=== PATIENT | female | born 1965 | race Caucasian/White ===

== ENCOUNTER → 2017-04-08 | Outpatient (CLI) | payer OTHER ==
--- NOTE | 2017-04-08 11:56 | WOMENS IMAGING REPORT ---
EXAM DESCRIPTION: BILAT SCREENING MAMMO W/CAD COMPLETED DATE/TIME: 04/08/2017 9:30 am REASON FOR STUDY: ROUTINE SCREENING; Z12.31 Z12.31 ENCNTR SCREEN MAMMOGRAM FOR MALIGNANT NEOPLASM O F ALEXANDRE COMPARISON: Multiple since 2008 TECHNIQUE: Standard craniocaudal and mediolateral oblique views of each breast recorded using mDialoga l acquisition. LIMITATIONS: None. FINDINGS: RIGHT BREAST MASSES: No suspicious masses. CALCIFICATIONS: No new or suspicious calcifications. ARCHITECTURAL DISTORTION: None. DEVELOPING DENSITY: None. ASYMMETRY: None noted. OTHER: No other significant findings. LEFT BREAST MASSES: Subcentimeter nodule left breast, 6 7 cm from the nipple. This requires further evaluation w ith cone compression magnification views in the CC and MLO orientations, left breast 90 mediolateral view, and left breast ultrasound, CALCIFICATIONS: No new or suspicious calcifications. ARCHITECTURAL DISTORTION: None. DEVELOPING DENSITY: None. ASYMMETRY: None noted. OTHER: No other significant findings. Read with the assistance of CAD. .[facility] - R2 Cenova Version 1.3 .[facility] - R2 Cenova Version 1.3 .[facility] - R2 Cenova Version 2.4 .[facility] [place] Cenova Version 2.4 .[facility] - R2 Beauty Advisor Version 9.2 IMPRESSION: No mammographic evidence for malignancy right breast. Mammographic nodule left breast for which additional diagnostic magnification mammograms and left alexandre ast ultrasound recommended BREAST DENSITY: b. There are scattered areas of fibroglandular density. BIRAD: 0 Incomplete: Needs Additional Imaging Evaluation and/or prior Mammograms for Comparison. RECOMMENDATION: RECOMMENDED FOLLOW-UP: Additional left breast diagnostic magnification mammograms an d ultrasound The patient will be contacted for additional imaging. COMMENT: The patient has been notified of the results by letter per [place] requirements. Additional no tification policies are in place for contacting patient with suspicious or incomplete findings. Quality ID #[id number]: The [employer] recommends an annual screening mammogram for women aged 40 years or over. This facility utilizes a reminder system to ensure that all patients receive reminder letters, and/or direct phone calls for appointments. This includes reminders for routine scr eening mammograms, diagnostic mammograms, or other Breast Imaging Interventions when appropriate. Th is patient will be placed in the appropriate reminder system. The [employer] (ACR) has developed recommendations for screening MRI of the breast s in certain patient populations, to be used in conjunction with mammography. Breast MRI surveillanc e may be appropriate for women with more than 20% lifetime risk of developing breast cancer as deter mined by genetic testing, significant family history of the disease, or history of mantle radiation f or Hodgkins Disease. ACR Practice Guidelines 2008. TECHNICAL DOCUMENTATION: FINDING NUMBER: (1) ASSESSMENT: (1) JOB ID: [id number] [employer]- All Rights Reserved
== END ==
LOC: EDSTATUS 09:01 → WI 09:23
PROVIDERS: ATTEND Internal Medicine
DX: Z12.31 Encounter for screening mammogram for malignant neoplasm of breast (principal)
CPT/HCPCS: 77067; G0202

== ENCOUNTER → 2017-05-10 | Outpatient (CLI) | payer OTHER ==
--- NOTE | 2017-05-10 12:20 | WOMENS IMAGING REPORT ---
EXAM DESCRIPTION: LEFT DIAGNOSTIC MAMMO W/CAD; U/S BREAST UNILAT LIMITED COMPLETED DATE/TIME: 05/10/2017 8:42 am; 05/10/2017 9:06 am REASON FOR STUDY: N63, BREAST LUMP; LEFT BREAST NODULAR DENSITY N63 UNSPECIFIED LUMP IN BREAST COMPARISON: 04/08/2017 and 01/16/2015. TECHNIQUE: Additional images include a true lateral view and spot compression MLO and CC views. LIMITATIONS: None. FINDINGS: BREAST: left MASSES: Nodule in the lateral breast fairly well-circumscribed on additional images although portions are obscured by adjacent parenchyma. No suspicious masses. CALCIFICATIONS: No new or suspicious calcifications. ARCHITECTURAL DISTORTION: None. DEVELOPING DENSITY: None. ASYMMETRY: None noted. OTHER: No other significant findings. BREAST ULTRASOUND: TECHNIQUE: Static and dynamic grayscale images acquired of the left breast in the specific areas of c linical/mammographic concern. Selected color Doppler images recorded. ELASTOGRAPHY PERFORMED: No. LIMITATIONS: None. FINDINGS: MASS: In the upper-outer breast there is a 7 mm anechoic cyst. This has smooth borders with no inter nal echoes. There is mild distal acoustic enhancement. No solid mass identified. Normal glandular tissue. ELASTOGRAPHY CHARACTERISTICS: Not applicable. OTHER: No other significant finding. IMPRESSION: Breast nodule which has sonographic characteristics of a simple cyst. No worrisome mamm ographic or sonographic findings. BREAST DENSITY: b. There are scattered areas of fibroglandular density. BIRAD: 2 Benign findings. RECOMMENDATION: RECOMMENDED FOLLOW UP: Birads 1 or 2: The patient should resume routine screening . SPECIFIC INTERVENTION/IMAGING/CONSULTATION RECOMMENDED:No additional intervention/ imaging/consultati on needed at this time. COMMUNICATION:The imaging findings were not discussed with the patient. Her referring provider has be en notified of the findings. COMMENT: The patient has been notified of the results by letter per MQSA requirements. Additional no tification policies are in place for contacting patient with suspicious or incomplete findings. Quality ID #[id number]: The [employer] recommends an annual screening mammogram for women aged 40 years or over. This facility utilizes a reminder system to ensure that all patients receive reminder letters, and/or direct phone calls for appointments. This includes reminders for routine scr eening mammograms, diagnostic mammograms, or other Breast Imaging Interventions when appropriate. Th is patient will be placed in the appropriate reminder system. The [employer] (ACR) has developed recommendations for screening MRI of the breast s in certain patient populations, to be used in conjunction with mammography. Breast MRI surveillanc e may be appropriate for women with more than 20% lifetime risk of developing breast cancer as deter mined by genetic testing, significant family history of the disease, or history of mantle radiation f or Hodgkins Disease. ACR Practice Guidelines 2008. TECHNICAL DOCUMENTATION: FINDING NUMBER: (1) ASSESSMENT: (1) JOB ID: [id number] [employer]- All Rights Reserved
== END ==
LOC: WI 08:15
PROVIDERS: ATTEND Internal Medicine
DX: N63 Unspecified lump in breast (principal)
CPT/HCPCS: 76642; G0206

== ENCOUNTER 2017-07-30 19:58 | Emergency (ER) | payer OTHER ==
[2017-07-30] MEDS ORDERED: KETOROLAC TROMETHAMINE INJ/PF 30 MG/1 ML SDV IV ONE (20:26)
--- NOTE | 2017-07-30 20:28 | ER Document Report ---
ED General - General Chief Complaint: Seizure Stated Complaint: POSSIBLE SEIZURE Time Seen by Provider: 07/30/17 20:20 Notes: Patient is a 52-year-old female with a past medical history of seizures who presents after having a generalized tonic-clonic seizure just prior to arrival. Patient states that she felt that she was about to have a seizure, contacted 911, and when EMS arrived her house she was found postictal. Patient does take levetiracetam for seizure control and states that she has not had a seizure in approximately 1 year. She arrives complaining of generalized body aching which is a dull, cramping, discomfort in her entire body. Moving worsens the pain. Nothing improves the pain. States this is typical for how she feels after having seizures. She denies any focal weakness or numbness. No headache or altered mental status. Denies any medication noncompliance. TRAVEL OUTSIDE OF THE [place] IN LAST 30 DAYS: No - Related Data Allergies/Adverse Reactions: codeine [Codeine] Allergy (Severe, Verified 03/22/16 11:06) Penicillins Allergy (Unknown, Verified 03/22/16 11:06) oxycodone HCl [From Percocet] Allergy (Verified 03/22/16 11:06) aspirin [From Aspirin Regimen Jon/Calcium] Adverse Reaction (Mild, Verified 11:06) NSAIDS (Non-Steroidal Anti-Inflamma [Nsaids] Adverse Reaction (Mild, Verified 11:06) Past Medical History - General Information source: Patient - Social History Smoking Status: Never Smoker Frequency of alcohol use: None Drug Abuse: None Lives with: Spouse/Significant other Family History: Reviewed & Not Pertinent - Past Medical History Cardiac Medical History: Reports: Hx Hypertension Pulmonary Medical History: Reports: Hx Asthma Neurological Medical History: Reports: Hx Migraine, Hx Seizures Endocrine Medical History: Reports: Hx Diabetes Mellitus Type 2 - insulin resistant; resolved since gastric bypass surgery, Hx Hypothyroidism GI Medical History: Reports: Hx Gastroesophageal Reflux Disease, Hx Hiatal Hernia, Hx Ulcer Musculoskeltal Medical History: Reports Hx Musculoskeletal Deformity, Reports Hx Musculoskeletal Trauma Psychiatric Medical History: Reports: Hx Depression Traumatic Medical History: Reports: Hx Fractures Past Surgical History: Reports: Hx Abdominal Surgery - gastric bypass, Hx Appendectomy, Hx Cholecystectomy, Hx Gastric Bypass Surgery, Hx Gynecologic Surgery - ravindra salpingooophorectomy, Hx Hysterectomy, Hx Orthopedic Surgery - Immunizations Immunizations up to date: Yes Hx Diphtheria, Pertussis, Tetanus Vaccination: Yes Review of Systems - Review of Systems Notes: Constitutional: Negative for fever. HENT: Negative for sore throat. Eyes: Negative for visual changes. Cardiovascular: Negative for chest pain. Respiratory: Negative for shortness of breath. Gastrointestinal: Negative for abdominal pain, vomiting or diarrhea. Genitourinary: Negative for dysuria. Musculoskeletal: Negative for back pain. Skin: Negative for rash. Neurological: Negative for headaches, weakness or numbness. 10 point ROS negative except as marked above and in HPI. Physical Exam - Vital signs Vitals: Resp BP Pulse Ox 24 H 124/89 H 100 07/30/17 20:07 07/30/17 20:07 07/30/17 20:07 Interpretation: Normal Notes: PHYSICAL EXAMINATION: GENERAL: Appears mildly uncomfortable but in no acute distress HEAD: Atraumatic, normocephalic. EYES: Pupils equal round and reactive to light, extraocular movements intact, sclera anicteric, conjunctiva are normal. ENT: nares patent, oropharynx clear without exudates. Moist mucous membranes. NECK: Normal range of motion, supple without lymphadenopathy LUNGS: Breath sounds clear to auscultation bilaterally and equal. No wheezes rales or rhonchi. HEART: Regular rate and rhythm without murmurs ABDOMEN: Soft, nontender, normoactive bowel sounds. No guarding, no rebound. No masses appreciated. EXTREMITIES: Normal range of motion, no pitting or edema. No cyanosis. NEUROLOGICAL: Face symmetric. Tongue protrudes midline. Extraocular motions intact. Pupils are 2 mm and equally reactive. Normal speech, normal gait. 5 out of 5 strength in both the distal and proximal upper and lower extremities bilaterally. Sensation is grossly intact throughout. Finger to nose testing normal. Pronator drift normal. PSYCH: Normal mood, normal affect. SKIN: Warm, Dry, normal turgor, no rashes or lesions noted. Course - Re-evaluation Re-evalutation: 07/30/17 20:27 Presentation of well-appearing patient after having a seizure. Patient has a known history of seizures. No obvious trigger for today's episode. The patient has returned to baseline without intervention. No focal neurologic deficits. No infectious symptoms, vital sign abnormalities, or evidence of trauma. No indication for laboratories or imaging based on reassuring evaluation and known history of seizures. The patient will be discharged home with recommendations for close follow-up with primary care as well as their neurologist. Return precautions have been reviewed and patient has verbalized understanding. - Vital Signs Vital signs: Temp Pulse Resp BP Pulse Ox 98.8 F 76 16 109/72 100 07/30/17 22:51 07/30/17 22:51 07/30/17 22:51 07/30/17 22:51 07/30/17 22:51 Discharge - Discharge Clinical Impression: Seizure Condition: Good Disposition: HOME, SELF-CARE Additional Instructions: Today you had a seizure. It is very important that you do not engage in any activities that could result in severe injury should you have a seizure. Specifically, do not drive a vehicle, go into a body of water, take a bath, climb ladders, or operate any heavy machinery until you have been cleared by your neurologist. Please return to the ED immediately if you have multiple seizures close together, develop a severe headache, weakness, numbness, difficulty speaking, have a seizure in which you do not return to normal within 1 hour of the seizure, or have any other symptoms that are concerning to you. Forms: Return to Work Referrals: REKHA LIN MD [Primary Care Provider] - Follow up as needed
[2017-07-30 22:53] VITALS: BP 109/72
--- NOTE | 2017-07-31 07:43 | EKG REPORT ---
SEVERITY:- OTHERWISE NORMAL ECG - SINUS TACHYCARDIA : Confirmed by: Lior Davis MD 31-Jul-2017 07:43:20
== END 2017-07-30 22:51 | disposition home or self-care (01) ==
LOC: ER 19:58
DX: R56.9 Unspecified convulsions (principal); I10 Essential (primary) hypertension; E11.9 Type 2 diabetes mellitus without complications; Z79.4 Long term (current) use of insulin; Z88.6 Allergy status to analgesic agent; Z88.0 Allergy status to penicillin; Z98.84 Bariatric surgery status; Z90.49 Acquired absence of other specified parts of digestive tract
CPT/HCPCS: 93005; 99284; 96374; 93010; J1885

== ENCOUNTER 2017-07-31 10:35 | Emergency (ER) | payer OTHER ==
[2017-07-31] MEDS ORDERED: DIPHENHYDRAMINE HCL 50 MG/ML VIAL IM ONE (11:00)
[2017-07-31] MEDS ORDERED: SILVER SULFADIAZINE 1% CREAM 25 GM TP ONE (11:00)
[2017-07-31] MEDS ORDERED: MORPHINE SULFATE 10 MG/ML INJ IM ONE (11:00)
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
--- NOTE | 2017-07-31 11:38 | RADIOLOGY REPORT (SQ) ---
EXAM DESCRIPTION: CT CERVICAL SPINE WITHOUT COMPLETED DATE/TIME: 07/31/2017 11:25 am REASON FOR STUDY: seizure, fall, neck pain COMPARISON: Prior CT cervical spine exams 08/13/2010, 07/16/2015, 09/18/2016 TECHNIQUE: Axial images acquired through the cervical spine without intravenous contrast. Images re viewed with lung, soft tissue and bone windows. Reconstructed coronal and sagittal MPR images review ed. Images stored on PACS. All CT scanners at this facility use dose modulation, iterative reconstruction, and/or weight based d osing when appropriate to reduce radiation dose to as low as reasonably achievable (ALARA). [facility]: Dose Right [facility]: CareDose [facility]: Dose Right [facility]: Teradose 4D [facility]: [employer] Technologies RADIATION DOSE: Up-to-date CT equipment and radiation dose reduction techniques were employed. CTDIv ol: 17.9 mGy. DLP: 386 mGy-cm. mGy. LIMITATIONS: None. FINDINGS: ALIGNMENT: Anatomic. MINERALIZATION: Normal. VERTEBRAL BODIES: No fractures or dislocation. DISCS: No significant disc disease. Very mild bilateral foraminal narrowing at C5-6 from facet and u ncovertebral hypertrophy. FACETS, LATERAL MASSES, POSTERIOR ELEMENTS: No fractures. No dislocation. No acute findings. HARDWARE: None in the spine. VISUALIZED RIBS: No fractures. LUNG APICES AND SOFT TISSUES: No significant or acute findings. OTHER: No other significant finding. IMPRESSION: NO ACUTE OR SIGNIFICANT FINDINGS IN THE CERVICAL SPINE. TECHNICAL DOCUMENTATION: JOB ID: [id number] Quality ID # [id number]: Final reports with documentation of one or more dose reduction techniques (e.g., Au tomated exposure control, adjustment of the mA and/or kV according to patient size, use of iterative reconstruction technique) 2010 [place] [employer] [facility]- All Rights Reserved
[2017-07-31 13:03] VITALS: BP 123/86
== END 2017-07-31 13:03 | disposition home or self-care (01) ==
LOC: ER 10:35
DX: R56.9 Unspecified convulsions (principal); Z79.899 Other long term (current) drug therapy; T22.142A Burn of first degree of left axilla, initial encounter; X10.1XXA Contact with hot food, initial encounter; Y93.G3 Activity, cooking and baking; S16.1XXA Strain of muscle, fascia and tendon at neck level, initial encounter; X58.XXXA Exposure to other specified factors, initial encounter; E11.9 Type 2 diabetes mellitus without complications; I10 Essential (primary) hypertension; Z88.5 Allergy status to narcotic agent; Z88.0 Allergy status to penicillin; Z98.84 Bariatric surgery status
CPT/HCPCS: 99284; 96372; 72125; J1200; J2270

== ENCOUNTER 2018-04-29 07:41 | Emergency (ER) | payer OTHER ==
[2018-04-29 07:59] VITALS: BP 137/78
[2018-04-29] MEDS ORDERED: KETOROLAC TROMETHAMINE 60 MG/2 ML SDV IM ONE (08:30)
[2018-04-29] MEDS ORDERED: PHENAZOPYRIDINE HCL 200 MG TABLET PO ONE (08:30)
--- NOTE | 2018-04-29 08:31 | ER Document Report ---
ED GI/ - General Mode of Arrival: Ambulatory Information source: Patient TRAVEL OUTSIDE OF THE [place] IN LAST 30 DAYS: No <JAQUAN FLORES - Last Filed: 04/29/18 14:51> <ANGELICA LOZANO - Last Filed: 04/29/18 16:08> - General Chief Complaint: Urinary Frequency Stated Complaint: FREQUENT URINATION WITH PAIN Time Seen by Provider: 04/29/18 08:10 Notes: 53-year-old female presenting to the emergency department today with complaints of right-sided CVA pain and possible dehydration/UTI. Patient states last night her symptoms began at about 2300 with a headache which has happened to her in the past when she is dehydrated. Patient states she has had some dysuria and a decreased appetite. Patient denies any nausea, vomiting, sweats, or chills. (JAQUAN FLORES) - Related Data Allergies/Adverse Reactions: codeine [Codeine] Allergy (Severe, Verified 04/29/18 07:42) Penicillins Allergy (Unknown, Verified 04/29/18 07:42) oxycodone HCl [From Percocet] Allergy (Verified 04/29/18 07:42) aspirin [From Aspirin Regimen Jon/Calcium] Adverse Reaction (Mild, Verified 07:42) NSAIDS (Non-Steroidal Anti-Inflamma [Nsaids] Adverse Reaction (Mild, Verified 07:42) Past Medical History - General Information source: Patient - Social History Smoking Status: Unknown if Ever Smoked Cigarette use (# per day): No Frequency of alcohol use: None Drug Abuse: None Lives with: Family Family History: Reviewed & Not Pertinent Patient has suicidal ideation: No Patient has homicidal ideation: No - Past Medical History Cardiac Medical History: Reports: Hx Hypertension Pulmonary Medical History: Reports: Hx Asthma Neurological Medical History: Reports: Hx Migraine, Hx Seizures Endocrine Medical History: Reports: Hx Diabetes Mellitus Type 2 - insulin resistant; resolved since gastric bypass surgery, Hx Hypothyroidism GI Medical History: Reports: Hx Gastroesophageal Reflux Disease, Hx Hiatal Hernia, Hx Ulcer Musculoskeletal Medical History: Reports Hx Musculoskeletal Deformity, Reports Hx Musculoskeletal Trauma Psychiatric Medical History: Reports: Hx Depression Traumatic Medical History: Reports: Hx Fractures Past Surgical History: Reports: Hx Abdominal Surgery - gastric bypass, Hx Appendectomy, Hx Cholecystectomy, Hx Gastric Bypass Surgery, Hx Gynecologic Surgery - ravindra salpingooophorectomy, Hx Hysterectomy, Hx Orthopedic Surgery - Immunizations Immunizations up to date: Yes Hx Diphtheria, Pertussis, Tetanus Vaccination: Yes <JAQUAN FLORES - Last Filed: 04/29/18 14:51> Review of Systems - Review of Systems Constitutional: See HPI, Other - decreased appetite. denies: Chills, Diaphoresis EENT: No symptoms reported Cardiovascular: No symptoms reported Respiratory: No symptoms reported Gastrointestinal: See HPI, Abdominal pain. denies: Nausea, Vomiting Genitourinary: See HPI, Dysuria Female Genitourinary: No symptoms reported Musculoskeletal: No symptoms reported Skin: No symptoms reported Hematologic/Lymphatic: No symptoms reported Neurological/Psychological: No symptoms reported -: Yes All other systems reviewed and negative <JAQUAN FLORES - Last Filed: 04/29/18 14:51> Physical Exam <JAQUAN FLORES - Last Filed: 04/29/18 14:51> <ANGELICA LOZANO - Last Filed: 04/29/18 16:08> - Vital signs Vitals: Temp Pulse Resp BP Pulse Ox 98.0 F 71 15 137/78 H 97 04/29/18 07:52 04/29/18 07:52 04/29/18 07:52 04/29/18 07:52 04/29/18 07:52 - Notes Notes: PHYSICAL EXAM GENERAL: Alert, interacts well. No acute distress. HEAD: Normocephalic, atraumatic. EYES: Pupils equal, round, and reactive to light. Extraocular movements intact. ENT: Oral mucosa moist, tongue midline. NECK: Full range of motion. Supple. Trachea midline. LUNGS: Clear to auscultation bilaterally, no wheezes, rales, or rhonchi. No respiratory distress. HEART: Regular rate and rhythm. No murmurs, gallops, or rubs. ABDOMEN: RLQ, LLQ, and RUQ tenderness with palpation with the RUQ and LLQ being the worst. Non-distended. Bowel sounds present in all 4 quadrants. No guarding, rigidity, or rebound. BACK: Slight left CVA ttp. EXTREMITIES: Moves all 4 extremities spontaneously. No edema, radial and dorsalis pedis pulses 2/4 bilaterally. No cyanosis. NEUROLOGICAL: Alert and oriented x3. Normal speech. PSYCH: Normal affect, normal mood. SKIN: Warm, dry, normal turgor. No rashes or lesions noted. (JAQUAN FLORES) Course - Laboratory Result Diagrams: 04/29/18 09:44 04/29/18 09:44 <JAQUAN FLORES - Last Filed: 04/29/18 14:51> - Laboratory Result Diagrams: 04/29/18 09:44 04/29/18 09:44 <ANGELICA LOZANO - Last Filed: 04/29/18 16:08> - Re-evaluation Re-evalutation: 04/29/18 09:40 Urinalysis shows small blood on the dipstick but 0 RBCs, no leukocyte esterase, no nitrites, 0 WBCs. Patient is in a moderate amount of pain on physical examination. I am concerned that in this patient with gastric bypass surgery that we may be missing an acute intra-abdominal process. I did order CBC and chemistries as well as urine culture, I ordered a CT scan with IV and oral contrast. Patient states she cannot stay for this as she has to work tonight. We discussed the risks and benefits of leaving without a CAT scan. We compromised on performing a CBC and chemistries and I will call her with the results. She agrees to return should her white blood cell count to be markedly elevated. Patient is aware that this will potentially delay care of a surgical intra-abdominal process such as diverticulitis with abscess. Patient is still choosing to leave after blood work has been performed. Patient has given me permission to text the results to her cell phone which was confirmed with her prior to leaving. 04/29/18 16:07 Results were texted to her via screenshots to her cell phone number as requested by her at 12:02 PM. (ANGELICA LOZANO) - Vital Signs Vital signs: Temp Pulse Resp BP Pulse Ox 98.0 F 71 15 137/78 H 97 04/29/18 07:52 04/29/18 07:52 04/29/18 07:52 04/29/18 07:52 04/29/18 07:52 - Laboratory Laboratory results interpreted by me: 04/29/18 04/29/18 07:50 09:44 Hgb 10.8 L Hct 33.2 L MCV 75 L MCH 24.5 L RDW 14.9 H Urine Blood SMALL H Discharge <JAQUAN FLORES - Last Filed: 04/29/18 14:51> <ANGELICA LOZANO - Last Filed: 04/29/18 16:08> - Discharge Clinical Impression: Dysuria, Frequency of urination, Diffuse abdominal pain Condition: Stable Disposition: HOME, SELF-CARE Additional Instructions: Today your urine showed a small amount of blood on the dipstick but nothing on the microscopic examination. I do not know what exactly is causing your abdominal pain or your urinary frequency. We have agreed that we will hold off in the CAT scan for now but I will perform blood work including a CBC and chemistries. I will text these results to you per your request. I will also call the results to your Herve Coello if there is anything grossly abnormal that would require you to return immediately. Should your pain worsen, you develop fevers or you develop any new or concerning symptoms please return to the emergency department immediately. Forms: Return to Work Referrals: REKHA LIN MD [Primary Care Provider] - Follow up as needed Scribe Attestation: 04/29/18 16:08 I personally performed the services described in the documentation, reviewed and edited the documentation which was dictated to the scribe in my presence, and it accurately records my words and actions. (ANGELICA LOZANO) Scribe Documentation - Scribe Written by Antonio:: Antonio Martin, 04/29/2018 1458 acting as scribe for :: Ubaldo <JAQUAN FLORES - Last Filed: 04/29/18 14:51>
[2018-04-29 09:04] LABS: APPEARANCE,URINE CLEAR; BILIRUBIN,URINE NEGATIVE (NEGATIVE); COLOR,URINE COLORLESS; GLUCOSE, URINE NEGATIVE (NEGATIVE); KETONES,URINE NEGATIVE (NEGATIVE); LEUKOCYTE ESTERASE,URINE NEGATIVE (NEGATIVE); NITRITE,URINE NEGATIVE (NEGATIVE); PROTEIN,URINE NEGATIVE (NEGATIVE); URINE SPECIFIC GRAVITY 1.005; UROBILINOGEN,URINE NEGATIVE mg/dL (<2.0)
[2018-04-29 10:00] LABS: ABSOLUTE EOSINOPHILS # (AUTO) 0.1 10^3/uL (0.0-0.6); ABSOLUTE LYMPHOCYTES (AUTO) 1.7 10^3/uL (0.5-4.7); ABSOLUTE MONOCYTES (AUTO) 0.3 10^3/uL (0.1-1.4); BASOPHILS % (AUTO) 0.6 % (0-2); EOSINOPHILS % (AUTO) 1.8 % (0-6); HEMATOCRIT 33.2 % (36.0-47.0); HEMOGLOBIN 10.8 g/dL (12.0-15.5); LYMPHOCYTES % (AUTO) 40.6 % (13-45); MEAN CORPUSCULAR HEMOGLOBIN 24.5 pg (27.0-33.4); MEAN CORPUSCULAR HGB CONC 32.6 g/dL (32.0-36.0); MEAN CORPUSCULAR VOLUME 75 fl (80-97); PLATELET COUNT 272 10^3/uL (150-450); RED BLOOD COUNT 4.43 10^6/uL (3.72-5.28); RED CELL DISTRIBUTION WIDTH 14.9 % (11.5-14.0); TOTAL CELLS COUNTED % (AUTO) 100 %; WHITE BLOOD COUNT 4.2 10^3/uL (4.0-10.5)
[2018-04-29 10:20] LABS: ALANINE AMINOTRANSFERASE 28 U/L (9-52); ALBUMIN 4.3 g/dL (3.5-5.0); ALKALINE PHOSPHATASE 55 U/L (38-126); ANION GAP 11 (5-19); ASPARTATE AMINO TRANSFERASE 23 U/L (14-36); BILIRUBIN,TOTAL 0.4 mg/dL (0.2-1.3); BLOOD UREA NITROGEN 10 mg/dL (7-20); CALCIUM 9.6 mg/dL (8.4-10.2); CARBON DIOXIDE 27 mmol/L (22-30); CHLORIDE 103 mmol/L (98-107); GLUCOSE 106 mg/dL (75-110); POTASSIUM 4.5 mmol/L (3.6-5.0); SODIUM 141.4 mmol/L (137-145)
== END 2018-04-29 09:52 | disposition home or self-care (01) ==
LOC: ER 07:41
DX: R35.0 Frequency of micturition (principal); R30.0 Dysuria; R10.9 Unspecified abdominal pain; Z88.6 Allergy status to analgesic agent; Z88.0 Allergy status to penicillin; Z88.8 Allergy status to other drugs, medicaments and biological substances; I10 Essential (primary) hypertension; J45.909 Unspecified asthma, uncomplicated; G43.909 Migraine, unspecified, not intractable, without status migrainosus; G40.909 Epilepsy, unspecified, not intractable, without status epilepticus; E11.9 Type 2 diabetes mellitus without complications; Z98.84 Bariatric surgery status; E03.9 Hypothyroidism, unspecified; K21.9 Gastro-esophageal reflux disease without esophagitis; K44.9 Diaphragmatic hernia without obstruction or gangrene; F32.9 Major depressive disorder, single episode, unspecified; Z90.49 Acquired absence of other specified parts of digestive tract; Z90.710 Acquired absence of both cervix and uterus
CPT/HCPCS: 36415; 85025; 80053; 81001; J1885; J3490; 96372; 99283

== ENCOUNTER 2019-03-13 07:56 | Emergency (ER) | payer OTHER ==
[2019-03-13 08:08] VITALS: BP 122/85
--- NOTE | 2019-03-13 08:57 | RADIOLOGY REPORT (SQ) ---
EXAM DESCRIPTION: FOOT LEFT COMPLETE COMPLETED DATE/TIME: 03/13/2019 8:43 am REASON FOR STUDY: foot/ankle injury COMPARISON: 07/18/2015. NUMBER OF VIEWS: Three views. TECHNIQUE: AP, lateral and oblique radiographic images acquired of the left foot. LIMITATIONS: None. FINDINGS: MINERALIZATION: Normal. BONES: Plantar calcaneal bone spur. JOINTS: No effusions. SOFT TISSUES: Soft tissue swelling dorsal to metatarsals. OTHER: No other significant finding. IMPRESSION: Soft tissue swelling dorsal to metatarsals. Plantar calcaneal bone spur. TECHNICAL DOCUMENTATION: JOB ID: [id number] SC-[id number] 2010 [employer]- All Rights Reserved Reading location - IP/workstation name: [email or web address]
--- NOTE | 2019-03-13 08:58 | RADIOLOGY REPORT (SQ) ---
EXAM DESCRIPTION: ANKLE LEFT COMPLETE COMPLETED DATE/TIME: 03/13/2019 8:40 am REASON FOR STUDY: ankle/foot injury COMPARISON: None. NUMBER OF VIEWS: 4 views. TECHNIQUE: AP, lateral, and oblique radiographic images acquired of the left ankle. LIMITATIONS: None. FINDINGS: MINERALIZATION: Normal. BONES: Plantar calcaneal bone spur. . JOINTS: No effusions. SOFT TISSUES: No soft tissue swelling. No foreign body. OTHER: No other significant finding. IMPRESSION: No acute fracture seen. TECHNICAL DOCUMENTATION: JOB ID: [id number] SC-[id number] 2010 [employer]- All Rights Reserved Reading location - IP/workstation name: [email or web address]
[2019-03-13] MEDS ORDERED: IBUPROFEN 400 MG TABLET PO ONE (09:40)
[2019-03-13] MEDS ORDERED: HYDROCODONE/ACETAMINOPHEN 5-325 MG TABLET PO ONE (09:40)
--- NOTE | 2019-03-13 09:44 | ER Document Report ---
ED Extremity Problem, Lower - General Chief Complaint: Ankle Injury Stated Complaint: LEFT ANKLE PAIN Time Seen by Provider: 03/13/19 09:29 Primary Care Provider: [facility] [Provider Group] - Follow up as needed REKHA LIN MD [Primary Care Provider] - Follow up as needed Mode of Arrival: Ambulatory Information source: Patient Notes: 54-year-old female presents to ED for left foot pain swelling and ecchymosis to the left foot and ankle. She states she stepped on some melting ice in the kitchen twisting her foot on she tried to grab the refrigerator but her ankle turned twisted and she is been trying to ice and elevate and ibuprofen but it is continued to swell. She worked last night 12 hours on this and now it is very swollen and painful. TRAVEL OUTSIDE OF THE [place] IN LAST 30 DAYS: No - HPI Patient complains to provider of: Injury, Pain, Swelling Location: Ankle, Foot Occurred: Yesterday Where: Home Onset/Duration: Gradual, Persistent, Worse Quality of pain: Pressure, Throbbing Severity: Moderate Context: Twisted Recent injury: Yes Associated symptoms: Painful ambulation Exacerbated by: Hanging down, Movement, Walking Relieved by: Elevation, Ice, Rest - Related Data Allergies/Adverse Reactions: codeine [Codeine] Allergy (Severe, Verified 03/13/19 08:00) Penicillins Allergy (Unknown, Verified 03/13/19 08:00) aspirin [From Aspirin Regimen Jon/Calcium] Adverse Reaction (Mild, Verified 03/13/19 08:00) Past Medical History - General Information source: Patient - Social History Smoking Status: Former Smoker Cigarette use (# per day): No Chew tobacco use (# tins/day): No Smoking Education Provided: No Frequency of alcohol use: Social Drug Abuse: None Occupation: Admission nursing secretary Lives with: Family Family History: Reviewed & Not Pertinent Patient has suicidal ideation: No Patient has homicidal ideation: No - Past Medical History Cardiac Medical History: Reports: Hx Hypertension Pulmonary Medical History: Reports: Hx Asthma EENT Medical History: Reports: None Neurological Medical History: Reports: Hx Migraine, Hx Seizures Endocrine Medical History: Reports: Hx Diabetes Mellitus Type 2 - insulin resistant; resolved since gastric bypass surgery, Hx Hypothyroidism Renal/ Medical History: Reports: None Malignancy Medical History: Reports: None GI Medical History: Reports: Hx Gastroesophageal Reflux Disease, Hx Hiatal Hernia, Hx Ulcer Musculoskeletal Medical History: Reports Hx Musculoskeletal Deformity, Reports Hx Musculoskeletal Trauma Skin Medical History: Reports None Psychiatric Medical History: Reports: Hx Depression Traumatic Medical History: Reports: Hx Fractures Infectious Medical History: Reports: None Past Surgical History: Reports: Hx Appendectomy, Hx Cholecystectomy, Hx Gastric Bypass Surgery, Hx Gynecologic Surgery - ravindra salpingooophorectomy, Hx Hysterectomy, Hx Orthopedic Surgery - Immunizations Immunizations up to date: Yes Hx Diphtheria, Pertussis, Tetanus Vaccination: Yes Review of Systems - Review of Systems Constitutional: No symptoms reported EENT: No symptoms reported Cardiovascular: No symptoms reported Respiratory: No symptoms reported Gastrointestinal: No symptoms reported Genitourinary: No symptoms reported Female Genitourinary: No symptoms reported Musculoskeletal: Joint pain, Joint swelling, Ankle swelling Skin: No symptoms reported Hematologic/Lymphatic: No symptoms reported Neurological/Psychological: No symptoms reported -: Yes All other systems reviewed and negative Physical Exam - Vital signs Vitals: Temp Pulse Resp BP Pulse Ox 98.0 F 92 16 122/85 98 03/13/19 08:00 03/13/19 08:00 03/13/19 08:00 03/13/19 08:00 03/13/19 08:00 Interpretation: Normal - General General appearance: Appears well, Alert - HEENT Head: Normocephalic, Atraumatic Eyes: Normal Pupils: PERRL - Respiratory Respiratory status: No respiratory distress Chest status: Nontender Breath sounds: Normal Chest palpation: Normal - Cardiovascular Rhythm: Regular Heart sounds: Normal auscultation Murmur: No - Abdominal Inspection: Normal Distension: No distension Bowel sounds: Normal Tenderness: Nontender Organomegaly: No organomegaly - Back Back: Normal, Nontender - Extremities General upper extremity: Normal inspection, Nontender, Normal color, Normal ROM, Normal temperature General lower extremity: Normal temperature. No: Chai's sign Ankle: Tender, Ecchymosis, Edema, Instability, Limited ROM. No: Positive Guerrero's test, Unable to bear weight - Painful to bear weight Foot: Tender, Ecchymosis, Edema, No evidence of FB. No: Metatarsal compress. pain, Tender 5th metatarsal, Unable to bear weight - Painful to bear weight - Neurological Neuro grossly intact: Yes Cognition: Normal Orientation: AAOx4 Terrence Coma Scale Eye Opening: Spontaneous Terrence Coma Scale Verbal: Oriented Terrence Coma Scale Motor: Obeys Commands Terrence Coma Scale Total: 15 Speech: Normal Motor strength normal: LUE, RUE, LLE, RLE Sensory: Normal - Psychological Associated symptoms: Normal affect, Normal mood - Skin Skin Temperature: Warm Skin Moisture: Dry Skin Color: Normal Course - Re-evaluation Re-evalutation: 03/13/19 09:47 The patient is nontoxic appearing with stable vitals. They are afebrile. Ankle exam shows no deformities with no obvious ligament instability. There is a normal pulse and sensation distally. There is no redness or signs of infection. X-rays show no acute fracture per the radiologist. Patient will be placed in an Juanjose wrap for comfort. Crutches will be offered and given if requested. Patient will be instructed to follow-up with not better in 1 week, sooner for increasing pain, fever, redness, numbness, tingling, weakness, any further concerns. Patient will be instructed to rest, ice, elevate their ankle. - Vital Signs Vital signs: Temp Pulse Resp BP Pulse Ox 98.0 F 92 16 122/85 98 03/13/19 08:00 03/13/19 08:00 03/13/19 08:00 03/13/19 08:00 03/13/19 08:00 - Diagnostic Test Radiology reviewed: Image reviewed, Reports reviewed Procedures - Immobilization Left Ankle Time completed: 09:50 Pre-Proc Neuro Vasc Exam: Normal Immobilizer type: Juanjose wrap, Ankle stirrup, Cock-up Performed by: PCT Post-Proc Neuro Vasc Exam: Normal Alignment checked and good: Yes Discharge - Discharge Clinical Impression: Sprain and strain of ankle Condition: Stable Disposition: HOME, SELF-CARE Additional Instructions: SPLINT PRECAUTIONS: A splint has been placed. This will protect the area while healing begins. Your problem does NOT normally require a cast. It SPRAINED ANKLE: Your sprained ankle results from stretching or tearing of the ligaments which support the ankle. This usually results from twisting the foot inward and under. The ligaments will require time and protection in order to heal properly. Many ankle sprains are quite disabling, and should be taken seriously. The usual treatment for an ankle sprain is cold packs; protection with tape, splints, or wraps; elevation; and staying off the ankle for at least a day. As the ankle improves, you can walk IF it's not painful to bear weight. Sports are best postponed until healing is complete. More serious sprains usually require strengthening exercises after early healing. Your physician has assessed the seriousness of the ligament injury to your ankle. However, the treatment may change, depending on how your ankle progresses. If further exams were recommended, it is important that you follow through. Call the doctor if your foot becomes numb, painful, or severely swollen. JUANJOSE WRAP: A compression dressing (juanjose wrap) has been placed. This helps hold the area still. It limits swelling and internal bleeding. The wrap should be comfortably snug -- not tight. You should feel a sense of pressure, but not severe pain under the wrap. Unless the physician tells you otherwise, you can adjust the wrap for comfort. If the wrap causes symptoms suggesting it's too tight -- uncomfortable pressure, swelling or discoloration beyond the wrap, numbness, or severe pain -- you must loosen the wrap. If these symptoms don't resolve promptly, return for re-evaluation. ANKLE STIRRUP SPLINT: You are to use an ankle brace called a stirrup splint. This type of brace allows you to place greater stresses on the ankle without risk of re-injury, and is often used for more severe ankle injuries such as avulsion fractures and ligament ruptures. The splint can be worn over a sock or tape. For proper support, wear the splint with a shoe over it. It's important that the splint fit properly. Adjust the heel tension, if needed. If your splint has air bladders, peel back the bottom of each air bladder, then move the Velcro attachment of the heel strap up or down. Air bladder pressure can be adjusted by pulling up the valve at the top, threading the air tube down into the main bladder, then blowing air into the bladder or squeezing it out. The two sides of the stirrup can be moved forward or back on your ankle by changing the attachment of the main straps. If you are unable to use the ankle comfortably in the splint, return for re-evaluation. USE OF CRUTCHES: The doctor has recommended that you not bear weight at this time. You will need to use crutches. Adjust the crutches so the tops come to about two inches under the armpit while you are standing upright. Use your hands -- not your armpits -- to support your weight. To get into a chair, support yourself with one crutch on the injured side. Hold the chair with the other hand, then lower yourself while putting all your weight on the good leg. Going up stairs is `good leg up, step up, then bring up crutches and bad leg.' Down stairs is `bad leg and crutches down, then bring good leg down.' If you develop numbness or swelling in an arm or hand, you are using the crutches incorrectly. Return if you are having any problems with the crutches. ICE & ELEVATION: Apply ice packs frequently against the painful area. Many different schedu les are recommended, such as "20 minutes on, 20 minutes off" or "one hour ice, two hours rest." If you need to work, you may need to go longer between ice treatments. You should plan to have the area ice packed AT LEAST one-fourth of the time. The ice should be applied over the wrap, tape, or splint, or over a layer of cloth -- not directly against the skin. Some ice bags have a built-in cloth and can be put directly on the skin. Your injured part should be elevated as much as possible over the next 48 hours. Try to keep the injury above the level of the heart. Avoid use of the i njured area. Elevation and rest will decrease the swelling. USE OF [id number] IBUPROFEN: Ibuprofen (Advil, Nuprin, Medipren, Motrin IB) is a medication for fever and pain control. In addition, it has anti- inflammatory effects which may be beneficial, especially in the treatment of injuries. It's best to take ibuprofen with food. Persons with ulcer disease or allergy to aspirin should notify their physician of this before taking ibuprofen. Ibuprofen can be given every four to six hours, for a total of four doses daily. Age Pain or fever dose Antiinflammatory dose 6-8 yr 200 mg (1 tab) 200 mg (1 tab) 9-11 yr 200 mg (1 tab) 200-400 mg (1-2 tab) 11-14 yr 200-400 mg (1-2 tab) 400 mg (2 tab) 15-adult 400 mg (2 tab) 600 mg (3 tab) ORAL NARCOTIC MEDICATION: You have been given a [place] for pain control. This medication is a narcotic. It's best taken with food, as nausea can result if taken on an empty stomach. Don't operate machinery or drive within six hours of taking this medication. Do not combine this medicine with alcohol, or with any medication which can cause sedation (such as cold tablets or sleeping pills) unless you get permission from the physician. Narcotics tend to cause constipation. If possible, drink plenty of fluids and eat a diet high in fiber and fruits. Please be aware that prescription narcotics also have the potential for abuse. People become addicted to these medications because of the general sense of wellbeing that they induce. This feeling along with a significant reduction in tension, anxiety, and aggression provides a stimulating seductive quality to these drugs. Once your pain is under control, we encourage you to discard your unused narcotics. FOLLOW-UP CARE: If you have been referred to a physician for follow-up care, call the physicians office for an appointment as you were instructed or within the next two days. If you experience worsening or a significant change in your symptoms, notify the physician immediately or return to the Emergency Department at any time for re-evaluation. Forms: Return to Work Referrals: REKHA LIN MD [Primary Care Provider] - Follow up as needed [facility] [Provider Group] - Follow up as needed
== END 2019-03-13 09:58 | disposition home or self-care (01) ==
LOC: ER 07:56
DX: S93.409A Sprain of unspecified ligament of unspecified ankle, initial encounter (principal); S90.02XA Contusion of left ankle, initial encounter; S90.32XA Contusion of left foot, initial encounter; M79.672 Pain in left foot; X50.0XXA Overexertion from strenuous movement or load, initial encounter; Y92.000 Kitchen of unspecified non-institutional (private) residence as the place of occurrence of the external cause; I10 Essential (primary) hypertension; J45.909 Unspecified asthma, uncomplicated; Z98.84 Bariatric surgery status; Z87.891 Personal history of nicotine dependence; Z88.5 Allergy status to narcotic agent; Z88.0 Allergy status to penicillin
CPT/HCPCS: 99283; 73610; 73630; L1902; J3490

== ENCOUNTER 2019-06-03 01:08 | Emergency (ER) | payer OTHER ==
[2019-06-03 04:51] LABS: APPEARANCE,URINE CLEAR; BILIRUBIN,URINE NEGATIVE (NEGATIVE); COLOR,URINE STRAW; GLUCOSE, URINE NEGATIVE (NEGATIVE); KETONES,URINE NEGATIVE (NEGATIVE); LEUKOCYTE ESTERASE,URINE NEGATIVE (NEGATIVE); NITRITE,URINE NEGATIVE (NEGATIVE); PROTEIN,URINE NEGATIVE (NEGATIVE); URINE SPECIFIC GRAVITY 1.012; UROBILINOGEN,URINE NEGATIVE mg/dL (<2.0)
[2019-06-03 04:54] LABS: ABSOLUTE EOSINOPHILS # (AUTO) 0.1 10^3/uL (0.0-0.6); ABSOLUTE LYMPHOCYTES (AUTO) 1.5 10^3/uL (0.5-4.7); ABSOLUTE MONOCYTES (AUTO) 0.3 10^3/uL (0.1-1.4); ABSOLUTE NEUT (AUTO) 2.1 10^3/uL (1.7-8.2); BASOPHILS % (AUTO) 0.8 % (0-2); EOSINOPHILS % (AUTO) 1.6 % (0-6); HEMATOCRIT 27.5 % (36.0-47.0); HEMOGLOBIN 8.4 g/dL (12.0-15.5); LYMPHOCYTES % (AUTO) 36.2 % (13-45); MEAN CORPUSCULAR HEMOGLOBIN 21.1 pg (27.0-33.4); MEAN CORPUSCULAR HGB CONC 30.7 g/dL (32.0-36.0); MEAN CORPUSCULAR VOLUME 69 fl (80-97); MONOCYTES % (AUTO) 8.4 % (3-13); PLATELET COUNT 236 10^3/uL (150-450); RED CELL DISTRIBUTION WIDTH 16.7 % (11.5-14.0); TOTAL CELLS COUNTED % (AUTO) 100 %
[2019-06-03 05:00] LABS: URINE AMPHETAMINES SCREEN NEGATIVE; URINE BARBITURATES SCREEN NEGATIVE; URINE BENZODIAZEPINES SCREEN UNCONFIRMED POSITIVE; URINE COCAINE SCREEN NEGATIVE; URINE MARIJUANA (THC) SCREEN NEGATIVE; URINE METHADONE SCREEN NEGATIVE; URINE PHENCYCLIDINE SCREEN NEGATIVE
[2019-06-03 05:02] LABS: INTERNATIONAL RATION (INR) 1.03; PARTIAL THROMBOPLASTIN TIME 26.6 SEC (23.5-35.8); PROTHROMBIN TIME 13.5 SEC (11.4-15.4)
[2019-06-03 05:11] LABS: ALBUMIN 3.5 g/dL (3.5-5.0); ALCOHOL 180 mg/dL (NONE DETECTED); ALKALINE PHOSPHATASE 145 U/L (38-126); ANION GAP 11 (5-19); ASPARTATE AMINO TRANSFERASE 93 U/L (14-36); BILIRUBIN,DIRECT 0.2 mg/dL (0.0-0.4); BILIRUBIN,TOTAL 0.2 mg/dL (0.2-1.3); BLOOD UREA NITROGEN 11 mg/dL (7-20); CALCIUM 8.3 mg/dL (8.4-10.2); CARBON DIOXIDE 26 mmol/L (22-30); CHLORIDE 108 mmol/L (98-107); GLUCOSE 94 mg/dL (75-110); POTASSIUM 3.6 mmol/L (3.6-5.0); TOTAL PROTEIN 5.7 g/dL (6.3-8.2)
--- NOTE | 2019-06-03 05:25 | ER Document Report ---
ED General - General Chief Complaint: Head Injury Stated Complaint: FALL Time Seen by Provider: 06/03/19 03:17 Primary Care Provider: REKHA LIN MD [Primary Care Provider] - Follow up in 3-5 days Mode of Arrival: Medic Information source: Patient, Emergency Med Personnel Notes: This 84-year-old female presents emergency department via EMS post fall. Alejandra mayers reports that she drank a bottle of blueberry whiskey today. Reports she was very upset depressed because it is the anniversary of her adopted granddaughter. She also reports she has many stresses at work and at home with her family. Reports she fell hit her head into the wall. No change in LOC. When she fell she experienced a seizure. Patient has history of seizures. Takes Keppra. Reports she has a headache is thirsty denies fever vomiting diarrhea. Wants to be discharged home. Reports she has to go to work or she will lose her job. TRAVEL OUTSIDE OF THE [place] IN LAST 30 DAYS: No - HPI Onset: Just prior to arrival Onset/Duration: Sudden Quality of pain: Achy Associated symptoms: Headache. denies: Nausea, Vomiting Exacerbated by: Denies Relieved by: Denies Similar symptoms previously: No Recently seen / treated by doctor: No - Related Data Allergies/Adverse Reactions: codeine [Codeine] Allergy (Severe, Verified 03/13/19 08:00) Penicillins Allergy (Unknown, Verified 03/13/19 08:00) aspirin [From Aspirin Regimen Jon/Calcium] Adverse Reaction (Mild, Verified 03/13/19 08:00) Past Medical History - General Information source: Patient Last Menstrual Period: hyster - Social History Smoking Status: Unknown if Ever Smoked Cigarette use (# per day): No Chew tobacco use (# tins/day): No Frequency of alcohol use: Occasional Drug Abuse: None Occupation: [employer] Lives with: Family Family History: Reviewed & Not Pertinent Patient has suicidal ideation: No Patient has homicidal ideation: No - Past Medical History Cardiac Medical History: Reports: Hx Hypertension Pulmonary Medical History: Reports: Hx Asthma Neurological Medical History: Reports: Hx Migraine, Hx Seizures Endocrine Medical History: Reports: Hx Diabetes Mellitus Type 2 - insulin resistant; resolved since gastric bypass surgery, Hx Hypothyroidism Renal/ Medical History: Denies: Hx Peritoneal Dialysis GI Medical History: Reports: Hx Gastroesophageal Reflux Disease, Hx Hiatal Hernia, Hx Ulcer Musculoskeletal Medical History: Reports Hx Musculoskeletal Deformity, Reports Hx Musculoskeletal Trauma Psychiatric Medical History: Reports: Hx Depression Traumatic Medical History: Reports: Hx Fractures Past Surgical History: Reports: Hx Abdominal Surgery - gastric bypass, Hx Appendectomy, Hx Cholecystectomy, Hx Gastric Bypass Surgery, Hx Gynecologic Surgery - ravindra salpingooophorectomy, Hx Hysterectomy, Hx Orthopedic Surgery - Immunizations Immunizations up to date: Yes Hx Diphtheria, Pertussis, Tetanus Vaccination: Yes Review of Systems - Review of Systems Notes: Review HPI for review of systems., All other systems negative Physical Exam - Vital signs Vitals: Temp Pulse Resp BP Pulse Ox 97.3 F 64 20 156/95 H 100 06/03/19 06:38 06/03/19 06:38 06/03/19 06:38 06/03/19 06:38 06/03/19 06:38 - General General appearance: Alert In distress: None - HEENT Head: Normocephalic, Atraumatic Eyes: Normal Conjunctiva: Normal Extraocular movements intact: Yes Pupils: PERRL Ears: Normal External canal: Normal Tympanic membrane: Normal Mouth/Lips: Normal Mucous membranes: Moist Pharynx: Normal Neck: Normal, Supple. No: Lymphadenopathy - Respiratory Respiratory status: No respiratory distress Chest status: Nontender Breath sounds: Normal Chest palpation: Normal - Cardiovascular Rhythm: Regular Heart sounds: Normal auscultation Murmur: No - Abdominal Inspection: Normal Distension: No distension Bowel sounds: Normal Tenderness: Nontender Organomegaly: No organomegaly - Back Back: Normal - Extremities General upper extremity: Normal ROM General lower extremity: Normal ROM - Neurological Neuro grossly intact: Yes Cognition: Normal Orientation: AAOx4 Terrence Coma Scale Eye Opening: Spontaneous Stuart Coma Scale Verbal: Oriented Terrence Coma Scale Motor: Obeys Commands Stuart Coma Scale Total: 15 Speech: Normal Cranial nerves: Normal Motor strength normal: LUE, RUE - Psychological Associated symptoms: Normal affect, Normal mood - Skin Skin Temperature: Warm Skin Moisture: Dry Skin Color: Normal, Ecchymosis Location of irregularity: Generalized - Generalized bruises to her upper extremities, Extremities Course - Re-evaluation Re-evalutation: 06/03/19 07:27 This 54-year-old female presents emergency department post EtOH for fall head injury. Patient reports that she is had a very stressful time today for the anniversary of her adopted granddaughter's . Reports she does not drink that often. She is complaining of a headache and being thirsty. Patient wants to go home. Was instructed on the need for CT of her head neck. He agreed for these test. CT of head & neck were negative for acute injury. Her H&H were 8.4 and 27.5 She has a history of anemia. She denies any type of bleeding reports she just had a colonoscopy last month and it was normal. Patient denies fever vomiting diarrhea. Patient was advised on rectal check for bleeding which she declined. Her iron is 13.6 low and her TIBC is 472. Patient was instructed on this and prescribed iron twice a day. She was also instructed on the importance of follow-up with Dr. Lin Wednesday. She is being discharged accompanied by her family. They were instructed on signs and symptoms of head injury and the importance of monitoring patient return for concerns. They verbalized understanding to all instructions. Dictation of this chart was performed using voice recognition software; therefore, there may be some unintended grammatical errors. 06/03/19 04:45 06/03/19 04:45 MCV 69 fl (80-97) L 06/03/19 04:45 MCH 21.1 pg (27.0-33.4) L 06/03/19 04:45 MCHC 30.7 g/dL (32.0-36.0) L 06/03/19 04:45 RDW 16.7 % (11.5-14.0) H 06/03/19 04:45 Seg Neutrophils % 53.0 % (42-78) 06/03/19 04:45 Lymphocytes % 36.2 % (13-45) 06/03/19 04:45 Monocytes % 8.4 % (3-13) 06/03/19 04:45 Eosinophils % 1.6 % (0-6) 06/03/19 04:45 Basophils % 0.8 % (0-2) 06/03/19 04:45 Absolute Neutrophils 2.1 10^3/uL (1.7-8.2) 06/03/19 04:45 Absolute Lymphocytes 1.5 10^3/uL (0.5-4.7) 06/03/19 04:45 Absolute Monocytes 0.3 10^3/uL (0.1-1.4) 06/03/19 04:45 Absolute Eosinophils 0.1 10^3/uL (0.0-0.6) 06/03/19 04:45 Absolute Basophils 0.0 10^3/uL (0.0-0.2) 06/03/19 04:45 Chloride 108 mmol/L (98-107) H 06/03/19 04:45 Carbon Dioxide 26 mmol/L (22-30) 06/03/19 04:45 Anion Gap 11 (5-19) 06/03/19 04:45 Est GFR ( Amer) > 60 (>60) 06/03/19 04:45 Est GFR (Non-Af Amer) > 60 (>60) 06/03/19 04:45 Glucose 94 mg/dL (75-110) 06/03/19 04:45 Calcium 8.3 mg/dL (8.4-10.2) L 06/03/19 04:45 Iron 13.6 ug/dL (37-170) L 06/03/19 04:45 TIBC 472 ug/dL (250-450) H 06/03/19 04:45 % Saturation 3 % 06/03/19 04:45 Total Bilirubin 0.2 mg/dL (0.2-1.3) 06/03/19 04:45 AST 93 U/L (14-36) H 06/03/19 04:45 Alkaline Phosphatase 145 U/L (38-126) H 06/03/19 04:45 Total Protein 5.7 g/dL (6.3-8.2) L 06/03/19 04:45 Albumin 3.5 g/dL (3.5-5.0) 06/03/19 04:45 Urine Color STRAW 06/03/19 04:31 Urine Appearance CLEAR 06/03/19 04:31 Urine pH 5.0 (5.0-9.0) 06/03/19 04:31 Ur Specific [place] 1.012 06/03/19 04:31 Urine Protein NEGATIVE mg/dL (NEGATIVE) 06/03/19 04:31 Urine Glucose (UA) NEGATIVE mg/dL (NEGATIVE) 06/03/19 04:31 Urine Ketones NEGATIVE mg/dL (NEGATIVE) 06/03/19 04:31 Urine Blood NEGATIVE (NEGATIVE) 06/03/19 04:31 Urine Nitrite NEGATIVE (NEGATIVE) 06/03/19 04:31 Ur Leukocyte Esterase NEGATIVE (NEGATIVE) 06/03/19 04:31 Urine WBC (Auto) 1 /HPF 06/03/19 04:31 Urine RBC (Auto) 0 /HPF 06/03/19 04:[address] 06/03/19 03:42 IMPRESSION: No acute fracture or subluxation. TECHNICAL DOCUMENTATION: Quality ID # 436: Final reports with documentation of one or more dose reduction techniques (e.g., Automated exposure control, adjustment of the mA and/or kV according to patient size, use of iterative reconstruction technique) copyright 2010 [employer]- All Rights Reserved Head CT 06/03/19 03:42 IMPRESSION: No acute intracranial abnormality. TECHNICAL DOCUMENTATION: Quality ID # 436: Final reports with documentation of one or more dose reduction techniques (e.g., Automated exposure control, adjustment of the mA and/or kV according to patient size, use of iterative reconstruction technique) copyright 2010 [employer]- All Rights Reserved - Vital Signs Vital signs: Temp Pulse Resp BP Pulse Ox 97.3 F 64 20 156/95 H 100 06/03/19 06:38 06/03/19 06:38 06/03/19 06:38 06/03/19 06:38 06/03/19 06:38 - Laboratory Result Diagrams: 06/03/19 04:45 06/03/19 04:45 Laboratory results interpreted by me: 06/03/19 06/03/19 06/03/19 04:45 04:45 04:45 Hgb 8.4 L Hct 27.5 L MCV 69 L MCH 21.1 L MCHC 30.7 L RDW 16.7 H Chloride 108 H Calcium 8.3 L Iron 13.6 L TIBC 472 H AST 93 H Alkaline Phosphatase 145 H Total Protein 5.7 L - Diagnostic Test Radiology reviewed: Image reviewed, Reports reviewed - EKG Interpretation by Me EKG shows normal: Sinus rhythm Rate: Normal Rhythm: NSR Additional EKG results interpreted by me: 06/03/19 07:[address] elevation no T wave inversion Discharge - Discharge Clinical Impression: etoh intoxication Fall Qualifiers: Encounter type: initial encounter Qualified Code(s): W19.XXXA - Unspecified fall, initial encounter Head injury Qualifiers: Encounter type: initial encounter Qualified Code(s): S09.90XA - Unspecified injury of head, initial encounter Condition: Stable Disposition: HOME, SELF-CARE Instructions: Acute Alcohol Intoxication ([facility]), Anemia, Iron Deficiency ([facility]), Antinausea Medication ([facility]), Head Injury Precautions ([facility]) Additional Instructions: *You have been evaluated for acute alcohol intoxication, fall, head injury, anemia *avoid alcohol *Follow up with a primary care provider within 3-5 days *Return to ED for worsening condition, changes, needs *Return to ED if not better in 24 hours Prescriptions: Ferrous Sulfate 325 mg PO BID #30 tablet.dr Forms: Return to Work Referrals: REKHA LIN MD [Primary Care Provider] - Follow up in 3-5 days
--- NOTE | 2019-06-03 05:26 | RADIOLOGY REPORT (SQ) ---
EXAM DESCRIPTION: CT HEAD WITHOUT IV CONTRAST COMPLETED DATE/TME: 06/03/2019 03:42 CLINICAL HISTORY: 54 years, Female, fall head injury +etoh COMPARISON: 09/18/2016 TECHNIQUE: Serial CT images of the brain were obtained without contrast. Sagittal and coronal reformats were performed. DLP 990 Images stored on PACS. All CT scanners at this facility use dose modulation, iterative reconstruction, and/or weight based dosing when appropriate to reduce radiation dose to as low as reasonably achievable (ALARA). [facility]: Dose Right [facility]: CareDose [facility]: Dose Right [facility]: Teradose 4D [facility]: [employer] LIMITATIONS: None. FINDINGS: No acute cortical infarct, hemorrhage, mass, edema, hydrocephalus, or extra-axial fluid collection. The miles-white matter differentiation is preserved. The paranasal sinuses and mastoid air cells are clear. There is no acute fracture IMPRESSION: No acute intracranial abnormality. TECHNICAL DOCUMENTATION: Quality ID # 436: Final reports with documentation of one or more dose reduction techniques (e.g., Automated exposure control, adjustment of the mA and/or kV according to patient size, use of iterative reconstruction technique) copyright 2011 [employer]- All Rights Reserved
--- NOTE | 2019-06-03 05:30 | RADIOLOGY REPORT (SQ) ---
EXAM DESCRIPTION: CT CERVICAL SPINE WITHOUT IV CONTRAST COMPLETED DATE/TME: 06/03/2019 03:42 CLINICAL HISTORY: 54 years, Female, fall head injury +etoh COMPARISON: 07/31/2017 TECHNIQUE: Axial CT images of the cervical spine were obtained without contrast. Sagittal and coronal reformats were performed. DLP 501 Images stored on PACS. All CT scanners at this facility use dose modulation, iterative reconstruction, and/or weight based dosing when appropriate to reduce radiation dose to as low as reasonably achievable (ALARA). [facility]: Dose Right [facility]: CareDose [facility]: Dose Right [facility]: Teradose 4D [facility]: Smart [facility] LIMITATIONS: None. FINDINGS: The alignment of the cervical spine is satisfactory. The vertebral heights are maintained. There is no acute fracture or subluxation. The prevertebral soft tissues are normal. The odontoid process is intact. The craniocervical junction is intact. There is mild disc space narrowing with endplate sclerosis along the left aspect of the C4-C5 disc space. The visualized lung apices are clear. IMPRESSION: No acute fracture or subluxation. TECHNICAL DOCUMENTATION: Quality ID # 436: Final reports with documentation of one or more dose reduction techniques (e.g., Automated exposure control, adjustment of the mA and/or kV according to patient size, use of iterative reconstruction technique) copyright 2010 [employer]- All Rights Reserved
[2019-06-03 06:08] LABS: IRON(TIBC) 13.6 ug/dL (37-170)
[2019-06-03] MEDS ORDERED: ACETAMINOPHEN 325 MG TABLET PO ONE (06:19)
[2019-06-03] MEDS ORDERED: ONDANSETRON ODT 4 MG TAB (6 TAB/ER DISP) PO PRN (06:30)
[2019-06-03 06:56] VITALS: BP 156/95
--- NOTE | 2019-06-03 10:10 | EKG REPORT ---
SEVERITY:- BORDERLINE ECG - SINUS RHYTHM BORDERLINE T WAVE ABNORMALITIES : Confirmed by: Viviana Ontiveros 03-Jun-2019 10:09:15
== END 2019-06-03 06:57 | disposition home or self-care (01) ==
LOC: ER 01:08
DX: S09.90XA Unspecified injury of head, initial encounter (principal); R51 Headache; S40.022A Contusion of left upper arm, initial encounter; S40.021A Contusion of right upper arm, initial encounter; W19.XXXA Unspecified fall, initial encounter; W22.01XA Walked into wall, initial encounter; F10.129 Alcohol abuse with intoxication, unspecified; R56.9 Unspecified convulsions; Z79.899 Other long term (current) drug therapy; I10 Essential (primary) hypertension; J45.909 Unspecified asthma, uncomplicated; Z63.4 Disappearance and death of family member; Z88.5 Allergy status to narcotic agent; Z88.0 Allergy status to penicillin; Z98.84 Bariatric surgery status
CPT/HCPCS: 36415; 51701; 70450; 72125; 80053; 80307; 81001; 83540; 83550; 85025; 85610; 85730; 93005; 93010; 99284

== ENCOUNTER 2019-12-12 03:35 | Emergency (ER) | payer OTHER ==
[2019-12-12] MEDS ORDERED: NORMAL SALINE 1000 ML 1,000 ML IV ONE (04:06)
[2019-12-12] MEDS ORDERED: LEVETIRACETAM 1000 MG/NACL-ISO 1,000 MG/100 ML RTUPB IV ONE (04:08)
[2019-12-12] MEDS ORDERED: MORPHINE SULFATE 10 MG/ML INJ IV ONE (04:09)
[2019-12-12] MEDS ORDERED: PROMETHAZINE HCL INJ 25 MG/1 ML VIAL IM ONE (04:10)
[2019-12-12] MEDS ORDERED: LEVETIRACETAM INJ/PF 500 MG/5 ML SDV IV ONE (04:27)
[2019-12-12 04:34] LABS: ABSOLUTE MONOCYTES (AUTO) 0.3 10^3/uL (0.1-1.4); ABSOLUTE NEUT (AUTO) 4.2 10^3/uL (1.7-8.2); BASOPHILS % (AUTO) 0.5 % (0-2); EOSINOPHILS % (AUTO) 0.1 % (0-6); HEMATOCRIT 38.6 % (36.0-47.0); HEMOGLOBIN 13.1 g/dL (12.0-15.5); LYMPHOCYTES % (AUTO) 18.6 % (13-45); MEAN CORPUSCULAR HEMOGLOBIN 28.7 pg (27.0-33.4); MEAN CORPUSCULAR HGB CONC 33.9 g/dL (32.0-36.0); MEAN CORPUSCULAR VOLUME 85 fl (80-97); MONOCYTES % (AUTO) 5.5 % (3-13); PLATELET COUNT 211 10^3/uL (150-450); RED BLOOD COUNT 4.55 10^6/uL (3.72-5.28); RED CELL DISTRIBUTION WIDTH 13.7 % (11.5-14.0); SEGMENTED NEUTROPHILS % (AUTO) 75.3 % (42-78); TOTAL CELLS COUNTED % (AUTO) 100 %; WHITE BLOOD COUNT 5.5 10^3/uL (4.0-10.5)
[2019-12-12 05:00] LABS: ALBUMIN 3.9 g/dL (3.5-5.0); ALCOHOL 13 mg/dL (NONE DETECTED); ALKALINE PHOSPHATASE 67 U/L (38-126); ANION GAP 10 (5-19); ASPARTATE AMINO TRANSFERASE 29 U/L (14-36); BILIRUBIN,TOTAL 0.2 mg/dL (0.2-1.3); BLOOD UREA NITROGEN 15 mg/dL (7-20); CARBON DIOXIDE 23 mmol/L (22-30); CHLORIDE 106 mmol/L (98-107); GLUCOSE 98 mg/dL (75-110); TOTAL PROTEIN 6.2 g/dL (6.3-8.2)
[2019-12-12 05:14] LABS: URINE AMPHETAMINES SCREEN NEGATIVE; URINE BARBITURATES SCREEN NEGATIVE; URINE BENZODIAZEPINES SCREEN NEGATIVE; URINE COCAINE SCREEN NEGATIVE; URINE MARIJUANA (THC) SCREEN NEGATIVE; URINE METHADONE SCREEN NEGATIVE; URINE PHENCYCLIDINE SCREEN NEGATIVE
--- NOTE | 2019-12-12 05:41 | RADIOLOGY REPORT (SQ) ---
CT head without contrast on 12/12/2019 at 4:50 AM CLINICAL INDICATION: Seizure, migraine headache TECHNIQUE: Multiple axial images are obtained throughout the head without the administration of contrast. This exam was performed according to our departmental dose-optimization program, which includes automated exposure control, adjustment of the mA and/or kV according to patient size and/or use of iterative reconstruction technique. Total DLP is 1017.17 mGy*cm. COMPARISON: 06/03/2019 FINDINGS: There is no hydrocephalus. There is no CT evidence of acute infarct. There is no hemorrhage. There are no abnormal extra-axial fluid collections. There is no mass, mass effect or midline shift. No bony abnormality is noted. IMPRESSION: No acute intracranial abnormality.
--- NOTE | 2019-12-12 06:19 | RADIOLOGY REPORT (SQ) ---
CLINICAL HISTORY: seizure/nausea and vomiting COMPARISON: None. 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 There are no abnormal radiopaque foreign bodies or abnormal calcifications. Osseous structures are grossly unremarkable. Cholecystectomy was performed. The heart is normal in size. Lungs are clear. There are surgical clips in the left abdomen. IMPRESSION: No bowel obstruction.
--- NOTE | 2019-12-12 06:28 | ER Document Report ---
Entered by PAULINA FREEMAN SCRIBE 12/12/19 0436 Acting as scribe for:ZE CRESPO MD ED General - General Chief Complaint: Seizure Stated Complaint: SEIZURE Time Seen by Provider: 12/12/19 03:47 Primary Care Provider: REKHA LIN MD [Primary Care Provider] - Follow up as needed Information source: Patient Notes: 54-year-old female with epilepsy presents with son to the emergency department after a possible seizure episode at work. Patient stated that she was feeling bad but pushed herself to go to work. Patient said that she laid down because s he felt one coming and her co-workers stated that she had a seizure. Patient reports urinating on herself during the episode. Patient reports nausea, migraines, diarrhea and fatigue. Patient explained that she has had a migraine for 3 days and has taken Motrin. She describes the migraine on the right side with the "taste of onions". Patient adds that she is so nauseous that she is unable to eat. Patient reports taking her Kepra for epilepsy at 5 pm last night. TRAVEL OUTSIDE OF THE [place] IN LAST 30 DAYS: No - Related Data Allergies/Adverse Reactions: codeine [Codeine] Allergy (Severe, Verified 03/13/19 08:00) Penicillins Allergy (Unknown, Verified 03/13/19 08:00) aspirin [From Aspirin Regimen Jon/Calcium] Adverse Reaction (Mild, Verified 03/13/19 08:00) Home Medications: vimpat. keppra. synthroid. 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; resolved since gastric bypass surgery, Hx Hypothyroidism GI Medical History: Reports: Hx Gastroesophageal Reflux Disease, Hx Hiatal Hernia, Hx Ulcer Musculoskeletal Medical History: Reports Hx Musculoskeletal Deformity, Reports Hx Musculoskeletal Trauma Psychiatric Medical History: Reports: Hx Depression Traumatic Medical History: Reports: Hx Fractures Past Surgical History: Reports: Hx Appendectomy, Hx Cholecystectomy, Hx Gastric Bypass Surgery, Hx Gynecologic Surgery - ravindra salpingooophorectomy, Hx Hyster ectomy, Hx Orthopedic Surgery - Immunizations Immunizations up to date: Yes Hx Diphtheria, Pertussis, Tetanus Vaccination: Yes Review of Systems - Review of Systems Constitutional: See HPI, Other - Fatigue EENT: No symptoms reported Cardiovascular: No symptoms reported Respiratory: No symptoms reported Gastrointestinal: See HPI, Diarrhea, Nausea. denies: Vomiting Genitourinary: No symptoms reported Female Genitourinary: No symptoms reported Musculoskeletal: No symptoms reported Skin: No symptoms reported Hematologic/Lymphatic: No symptoms reported Neurological/Psychological: See HPI, Headaches, Other - Seizure -: Yes All other systems reviewed and negative Physical Exam - Vital signs Vitals: Temp Pulse Resp BP Pulse Ox 98.0 F 98 16 158/99 H 99 12/12/19 03:44 12/12/19 03:44 12/12/19 03:44 12/12/19 03:44 12/12/19 03:44 - Notes Notes: Physical Exam: General: Alert. appears nauseated and fatigued. HEENT: Normocephalic. Atraumatic. PERRL. Extraocular movements intact. Oropharynx clear. Neck: Supple. Non-tender. Respiratory: No respiratory distress. Clear and equal breath sounds bilaterally. Cardiovascular: Regular rate and rhythm. Abdominal: Normal Inspection. Non-tender. No distension. Normal Bowel Sounds. Back: No gross abnormalities. Extremities: Moves all four extremities. Upper extremities: Normal inspection. Normal ROM. Lower extremities: Normal inspection. No edema. Normal ROM. Neurological: Normal cognition. AAOx4. Normal speech. Psychological: Normal affect. Normal Mood. Skin: Warm. Dry. Normal color. Course - Vital Signs Vital signs: Temp Pulse Resp BP Pulse Ox 98.0 F 98 17 170/95 H 94 12/12/19 03:44 12/12/19 03:44 12/12/19 04:15 12/12/19 04:15 12/12/19 05:14 - Laboratory Result Diagrams: 12/12/19 04:20 12/12/19 04:20 Laboratory results interpreted by me: 12/12/19 04:20 Creatinine 0.46 L Total Protein 6.2 L Of note alcohol level 13. - Diagnostic Test Radiology reviewed: Image reviewed, Reports reviewed Radiology results interpreted by me: 12/12/19 06:22 CT of head did not show any acute process no stroke and no evidence for any inflammation or swelling. No mass seen. Acute abdominal series shows a normal chest without any acute cardiopulmonary disease noted. Abdominal series flat and upright shows some mild scattered air- fluid levels no obstruction prior surgery noted. Discharge - Discharge Clinical Impression: Seizure, Migraine headache, Hypertension Condition: Stable Disposition: ADMITTED INPATIENT Additional Instructions: Seizure, Known Epileptic You have had a seizure. Seizures may "break through" in an epileptic due to stress of infection or injury, a change in blood chemistry, or drug and alcohol use. Another common cause is failure to take medication as prescribed. Your doctor has evaluated your situation for the likely cause of this seizure. It is important that you follow his advice concerning any medication changes and follow-up care. Further testing of anti-seizure medication levels in your blood may be necessary. If you have a motor driver's license, it's important that you DO NOT DRIVE until given permission by your physician. This seizure must be reported to the motor driver's license bureau. Call the doctor or return if seizures recur, or if new or unusual symptoms arise -- such as severe headache, confusion, excessive sleepiness, local we akness or numbness, neck stiffness, or fever. Migraine Headache The physician feels that your symptoms are due to a migraine attack. Migraines are caused by changes in the blood vessels of the head. Arteries go into spasm, often causing warning symptoms that a headache may begin soon. As the spasm goes away, the vessels dilate and throb, causing the pounding pain of a migraine headache. Migraines often cause nausea and vomiting. The treatment of headaches varies with severity and cause of pain. Not all headaches need pain shots -- in fact, there is evidence that using narcotics for headaches may make them worse in the long run. The physician will determine the therapy that's in your best interest for this particular headache. Medications are available that may prevent migraines, or stop them as they first occur. If one medication is not helpful, try another. If migraines are frequent, be patient -- follow the doctor's recommendations. Call the physician if you are worsening, or if new symptoms arise. Referrals: REKHA LIN MD [Primary Care Provider] - Follow up as needed I personally performed the services described in the documentation, reviewed and edited the documentation which was dictated to the scribe in my presence, and it accurately records my words and actions.
[2019-12-12] MEDS ORDERED: ONDANSETRON 4 MG TAB.RAPDIS PO ONE (06:59)
[2019-12-12 07:17] VITALS: BP 159/82
--- NOTE | 2019-12-12 17:01 | EKG REPORT ---
SEVERITY:- BORDERLINE ECG - BORDERLINE PROLONGED QT INTERVAL SINUS RHYTHM BASELINE ARTIFACT : Confirmed by: Annabella Wylie MD 12-Dec-2019 17:01:12
== END 2019-12-12 07:17 | disposition home or self-care (01) ==
LOC: ER 03:35
DX: G40.909 Epilepsy, unspecified, not intractable, without status epilepticus (principal); G43.909 Migraine, unspecified, not intractable, without status migrainosus; I10 Essential (primary) hypertension; R11.0 Nausea; R19.7 Diarrhea, unspecified; R53.83 Other fatigue; E11.9 Type 2 diabetes mellitus without complications; Z88.6 Allergy status to analgesic agent; Z88.0 Allergy status to penicillin; Z79.84 Long term (current) use of oral hypoglycemic drugs; Z90.49 Acquired absence of other specified parts of digestive tract; Z98.84 Bariatric surgery status
CPT/HCPCS: 93005; 99284; 96372; 96361; 96374; 96375; 36415; 80307 ×2; 85025; 80053; 84484; 74022; 70450; 93010; S0119; J2270; J2550; J7030; J1953

== ENCOUNTER 2020-07-31 23:54 | Emergency (ER) | payer OTHER ==
[2020-08-01] MEDS ORDERED: OXYCODONE-ACETAMINOPHEN 5-325 MG TABLET PO ONE (00:14)
--- NOTE | 2020-08-01 00:16 | ER Document Report ---
ED Medical Screen (RME) - General Chief Complaint: Fall Injury Stated Complaint: FALL/ANKLE AND FOOT PAIN Time Seen by Provider: 08/01/20 00:13 Primary Care Provider: REKHA LIN MD [Primary Care Provider] - Follow up as needed Mode of Arrival: Wheelchair Information source: Patient Notes: 55-year-old morbidly obese female twisted her right ankle and foot. Cannot bear weight. General exam: No acute distress Musculoskeletal right foot and right ankle tender over the lateral aspect. No bony deformities. Mild soft tissue swelling/bruising I have greeted and performed a rapid initial assessment of this patient. A comprehensive ED assessment and evaluation of the patient, analysis of test results and completion of the medical decision making process will be conducted by additional ED providers. TRAVEL OUTSIDE OF THE [place] IN LAST 30 DAYS: No - Related Data Allergies/Adverse Reactions: codeine [Codeine] Allergy (Severe, Verified 08/01/20 00:12) Penicillins Allergy (Unknown, Verified 08/01/20 00:12) aspirin [From Aspirin Regimen Jon/Calcium] Adverse Reaction (Mild, Verified 08/01/20 00:12) Past Medical History - Past Medical History Cardiac Medical History: Reports: Hx Hypertension Pulmonary Medical History: Reports: Hx Asthma Neurological Medical History: Reports: Hx Migraine, Hx Seizures Endocrine Medical History: Reports: Hx Diabetes Mellitus Type 2 - insulin resistant; resolved since gastric bypass surgery, Hx Hypothyroidism Renal/ Medical History: Denies: Hx Peritoneal Dialysis GI Medical History: Reports: Hx Gastroesophageal Reflux Disease, Hx Hiatal Hernia, Hx Ulcer Musculoskeltal Medical History: Reports Hx Musculoskeletal Deformity, Reports Hx Musculoskeletal Trauma Psychiatric Medical History: Reports: Hx Depression Traumatic Medical History: Reports: Hx Fractures Past Surgical History: Reports: Hx Abdominal Surgery - gastric bypass, Hx Appendectomy, Hx Cholecystectomy, Hx Gastric Bypass Surgery, Hx Gynecologic Surgery - ravindra salpingooophorectomy, Hx Hysterectomy, Hx Orthopedic Surgery - Immunizations Immunizations up to date: Yes Hx Diphtheria, Pertussis, Tetanus Vaccination: Yes Doctor's Discharge - Discharge Referrals: REKHA LIN MD [Primary Care Provider] - Follow up as needed
--- NOTE | 2020-08-01 02:57 | RADIOLOGY REPORT (SQ) ---
EXAM DESCRIPTION: XR FOOT 3 OR MORE VIEWS COMPLETED DATE/TME: 08/01/2020 00:13 CLINICAL HISTORY: 55 years, Female, twisted COMPARISON: None. NUMBER OF VIEWS: 3 TECHNIQUE: 3 views right foot LIMITATIONS: None FINDINGS: .Osteopenia. Negative for acute fracture or dislocation of the foot. Partial visualization of a lateral malleolus fracture.. Dorsal soft tissue swelling. Calcaneal spur IMPRESSION: No acute osseous abnormality of the foot. Partial visualization of a lateral malleolus fracture copyright 2010 [employer]- All Rights Reserved
--- NOTE | 2020-08-01 02:58 | RADIOLOGY REPORT (SQ) ---
EXAM DESCRIPTION: XR ANKLE 3 OR MORE VIEWS COMPLETED DATE/TME: 08/01/2020 00:13 CLINICAL HISTORY: 55 years, Female, twisted COMPARISON: None. NUMBER OF VIEWS: 3 TECHNIQUE: 3 view right ankle LIMITATIONS: None. FINDINGS: Osteopenia. Comminuted nondisplaced obliquely oriented fracture of the distal fibula. Associated soft tissue swelling. No dislocation. Ankle mortise is otherwise intact IMPRESSION: Lateral malleolus fracture as above copyright 2010 [employer]- All Rights Reserved
--- NOTE | 2020-08-01 06:07 | ER Document Report ---
ED Extremity Problem, Lower - General Chief Complaint: Foot Injury Stated Complaint: FALL/ANKLE AND FOOT PAIN Time Seen by Provider: 08/01/20 00:13 Primary Care Provider: REKHA LIN MD [Primary Care Provider] - Follow up as needed SAVANAH MANTILLA DO [ACTIVE STAFF] - Follow up as needed Mode of Arrival: Wheelchair TRAVEL OUTSIDE OF THE [place] IN LAST 30 DAYS: No - HPI Notes: 55-year-old female presents with injury to right ankle. Patient states that around 11:30 PM she was reaching down while sitting in a rolling chair, the chair rolled and caused her to land onto her right ankle. She states that her right ankle turned inwards and she heard multiple snapping sounds. She had immediate pain. She states that she was able to put her foot down on the step of EMS, then stating that she was not able to bear weight. She denies any other areas of injury. - Related Data Allergies/Adverse Reactions: codeine [Codeine] Allergy (Severe, Verified 08/01/20 00:16) Penicillins Allergy (Unknown, Verified 08/01/20 00:16) aspirin [From Aspirin Regimen Jon/Calcium] Adverse Reaction (Mild, Verified 08/01/20 00:16) Past Medical History - General Information source: Patient - Social History Smoking Status: Former Smoker Frequency of alcohol use: Heavy Drug Abuse: None, Prescription drugs Family History: Reviewed & Not Pertinent - Past Medical History Cardiac Medical History: Reports: Hx Hypertension Pulmonary Medical History: Reports: Hx Asthma Neurological Medical History: Reports: Hx Migraine, Hx Seizures Endocrine Medical History: Reports: Hx Diabetes Mellitus Type 2 - insulin resistant; resolved since gastric bypass surgery, Hx Hypothyroidism Renal/ Medical History: Denies: Hx Peritoneal Dialysis GI Medical History: Reports: Hx Gastroesophageal Reflux Disease, Hx Hiatal Hernia, Hx Ulcer Musculoskeletal Medical History: Reports Hx Musculoskeletal Deformity, Reports Hx Musculoskeletal Trauma Psychiatric Medical History: Reports: Hx Depression Traumatic Medical History: Reports: Hx Fractures Past Surgical History: Reports: Hx Abdominal Surgery - gastric bypass, Hx Appendectomy, Hx Cholecystectomy, Hx Gastric Bypass Surgery, Hx Gynecologic Surgery - ravindra salpingooophorectomy, Hx Hysterectomy, Hx Orthopedic Surgery - Immunizations Immunizations up to date: Yes Hx Diphtheria, Pertussis, Tetanus Vaccination: Yes Review of Systems - Review of Systems Constitutional: No symptoms reported EENT: No symptoms reported Cardiovascular: No symptoms reported Respiratory: No symptoms reported Gastrointestinal: No symptoms reported Genitourinary: No symptoms reported Female Genitourinary: No symptoms reported Musculoskeletal: See HPI Skin: Other - No wound Hematologic/Lymphatic: No symptoms reported Neurological/Psychological: No symptoms reported Physical Exam - Vital signs Vitals: Temp Pulse Resp BP Pulse Ox 97.3 F 107 H 16 124/74 97 08/01/20 00:10 08/01/20 00:10 08/01/20 00:10 08/01/20 00:10 08/01/20 00:10 - General General appearance: Appears well, Alert In distress: None - HEENT Head: Normocephalic, Atraumatic Pupils: PERRL - Respiratory Respiratory status: No respiratory distress - Cardiovascular Rhythm: Regular Pulses: Normal: Posterior tibial, Dorsalis pedis Normal capillary refill: Yes - Abdominal Inspection: Obese - Extremities Notes: No tenderness to right hip, upper leg, knee or over tibial area. She does have some tenderness to the lateral distal lower leg. No tenderness to right foot. Ankle is overall stable. - Neurological Neuro grossly intact: Yes Cognition: Normal Orientation: AAOx4 - Psychological Associated symptoms: Normal affect - Skin Skin Temperature: Warm Skin Color: Ecchymosis - Small area to the distal right leg Course - Re-evaluation Re-evalutation: 55-year-old female presents with right ankle pain after she fell from a chair, landing onto her right ankle. She has some tenderness to the distal right leg, no wounds, ankle is overall stable. No tenderness to right hip or knee. She had an x-ray evaluation done prior to evaluation which shows an oblique nondisplaced fibula fracture. I updated her on this finding. Have ordered a posterior leg splint and crutches. Discussed with her nonweightbearing status and need to follow-up with orthopedics, contact information was provided. Was given Percocet prior to evaluation, does not appear to have any side effects to this, additional dose of [place] ordered. - Vital Signs Vital signs: Temp Pulse Resp BP Pulse Ox 97.6 F 100 16 128/76 H 98 08/01/20 06:52 08/01/20 06:52 08/01/20 06:52 08/01/20 06:52 08/01/20 06:52 - Diagnostic Test Radiology reviewed: Image reviewed, Reports reviewed Discharge - Discharge Clinical Impression: Fracture of fibula, distal, right, closed Qualifiers: Encounter type: initial encounter Fracture morphology: other fracture Qualified Code(s): S82.831A - Other fracture of upper and lower end of right fibula, initial encounter for closed fracture Disposition: HOME, SELF-CARE Additional Instructions: Nonweightbearing to the right leg, use crutches. While at rest be sure to elevate and you can apply ice to the area. Use pain medicines as needed. Please call orthopedics this morning when they open to schedule follow-up. Return to the emergency department for any concerning worsening symptoms. Prescriptions: Oxycodone HCl/Acetaminophen [Percocet 5-325 mg Tablet] 1 tab PO Q4H PRN #15 tablet PRN Reason: For Pain Forms: Return to Work Referrals: REKHA LIN MD [Primary Care Provider] - Follow up as needed SAVANAH MANTILLA DO [ACTIVE STAFF] - Follow up as needed
[2020-08-01] MEDS ORDERED: HYDROCODONE/ACETAMINOPHEN 5-325 MG TABLET PO ONE (06:27)
[2020-08-01 06:59] VITALS: BP 128/76
== END 2020-08-01 08:20 | disposition home or self-care (01) ==
LOC: ER 23:54
DX: S82.64XA Nondisplaced fracture of lateral malleolus of right fibula, initial encounter for closed fracture (principal); W07.XXXA Fall from chair, initial encounter; I10 Essential (primary) hypertension; J45.909 Unspecified asthma, uncomplicated; Z98.84 Bariatric surgery status; Z87.891 Personal history of nicotine dependence; Z88.6 Allergy status to analgesic agent; Z88.5 Allergy status to narcotic agent; Z88.0 Allergy status to penicillin
CPT/HCPCS: 99284